=== PATIENT | male | born 1955 | race Caucasian/White ===

== ENCOUNTER 2018-08-20 02:15 | Emergency (ER) | payer OTHER ==
[2018-08-20 02:27] VITALS: RESP 20; TEMP 98.2
[2018-08-20] MEDS ORDERED: TDAP VACCINE 0.5 ML SUS IM ONE ×2 (03:17→03:35)
[2018-08-20 03:47] VITALS: BP 134/59; PULSE 53; O2SAT 94
== END 2018-08-20 03:58 | disposition home or self-care (01) | DRG 950 ==
LOC: ED 02:15
DX: S81.802D Unspecified open wound, left lower leg, subsequent encounter (principal)
CPT/HCPCS: 90471; 90715; 99282; 99285; A6232; A6402; A6446